=== PATIENT | male | born 1965 | race Caucasian/White ===

== ENCOUNTER → 2016-12-10 | Outpatient (CLI) | payer OTHER ==
[~2016-12-10] MED LIST: ASPI81TA28 PO; CEPH500C2 PO; LSN/2025 PO; OXYC-57 PO
== END | disposition home or self-care (01) ==
LOC: C.CPL 11:15
PROVIDERS: ATTEND Otolaryngology
DX: Z01.810 Encounter for preprocedural cardiovascular examination (principal)

== ENCOUNTER → 2016-12-13 | Day surgery (SDC) | payer OTHER ==
[2016-12-12 08:25] VITALS: Ht 182.9 cm; Wt 109.1 kg
--- NOTE | 2016-12-12 12:46 | History and Physical: Surg Cnt ---
History & Physical Date Dec 12, 2016. Chief Complaint hearing loss left ear and nasal obstruction History of Present Illness The patient is a 51 year old male with complaints of septal deviation, congenital atresia of left ear Past Medical/Surgical History Medical Problems: (1) Hypertension (2) Kidney stone Additional History Hepatic Disease: No Endocrine Disorder: No Kidney Disease: No Hypertension: No Heart Disease: No Bleeding Tendencies: No Infectious Diseases: No Allergies Coded Allergies: No Known Allergies (Unverified , 12/12/16) Home Medications Scheduled Aspirin (Aspirin Ec), 81 MG PO DAILY Hctz/Lisinopril (Lisinopril/Hctz 20/25 Mg), 1 TAB PO QAM Physical Examination Skin: warm/dry, no rash Eyes: normal inspection, EOMI, sclerae normal ENT: + pertinent finding (septal dev., atresia left ear) Head: normocephalic, atraumatic Neck: supple, no adenopathy, trachea midline Respiratory/Chest: lungs clear, normal breath sounds, no respiratory distress Cardiovascular: regular rate, rhythm, no edema, no murmur Abdomen / GI: normal bowel sounds, non tender Back: normal inspection Extremities: normal inspection, normal range of motion Neurologic/Psych: no motor/sensory deficits, alert, normal reflexes, oriented x 3 Diagnosis septal deviation, atresia left ear Plan of Treatment septoplasty, cochlear implant left ear
[~2016-12-13] VITALS: Ht 182.9 cm; Wt 109.1 kg
[~2016-12-13] MED LIST changes: +ATROPINE SULFATE 0.1 MG/ML 5ML SYR IV PRN; +BACITRACIN OINT 15 GM TUBE ONE; +CEFAZOLIN 2000 MG/60 ML D5W IV SCH; +DEXAMETHASONE SOD INJ 4 MG/ML VIAL ONE; +EpHEDrine SULFATE INJ 50 MG/ML AMP IV PRN; +EpHEDrine SULFATE INJ 50 MG/ML AMP ONE; +EpINEphrine INJ 1MG/ML AMP 1 MG/ML AMP ONE; +FENTANYL CITRATE INJ 50 MCG/1 ML 2 ML VIAL IV PRN; +FENTANYL CITRATE INJ 50 MCG/1 ML 2 ML VIAL ONE; +GELATIN SPONGE 12-7MM ONE; +GLYCOPYRROLATE INJ 0.2 MG/ML VIAL ONE; +LACTATED RINGER'S 1000ML 1,000 ML IV SCH; +LIDO 2%/EPINEPHRINE 1:100000 20 ML VIAL INFIL ONE; +LIDOCAINE 4% MPF SOAK 5 ML = 1 DOSE TOP ONE; +LIDOCAINE HCL 2% 2 ML VIAL (20MG/ML) ONE; +MIDAZOLAM HCL 1 MG/ML 2ML VIAL ONE; +NEOSTIGMINE METHYLSULFATE 5 MG/5 ML SYR ONE; +ONDANSETRON INJ 2 MG/ML 2 ML VIAL IV PRN; +ONDANSETRON INJ 2 MG/ML 2 ML VIAL ONE; +OXYCODONE/ACETAMINOPHEN 5-325 TAB PO PRN; +PHENYLEPHRINE HCL INJ 10 MG/ML VIAL ONE; +PROMETHAZINE HCL INJ 6.25 MG in SODIUM CHLORIDE 0.9% 50ML 50 ML IV PRN; +PROPOFOL IV EMULSION 10 MG/ML 20 ML VIAL IV ONE; +SODIUM CHLORIDE 0.9% 1000ML 1,000 ML IV SCH; +SUCCINYLCHOLINE CHLORIDE 20 MG/ML 10 ML VIAL IV ONE
--- NOTE | 2016-12-13 07:47 | History & Physical Bridge Note ---
H&P Re-Evaluation Bridge Note: I have examined the patient, reviewed the History & Physical and in the interval since the performance of the History & Physical I have noted the following changes of clinical significance: No changes noted
--- NOTE | 2016-12-13 12:29 | [facility] Operative Report ---
Operative Report Operative Date Dec 13, 2016. Pre-Operative Diagnosis Atresia Left Ear, Septal Deviation Post-Operative Diagnosis Same Procedure(s) Performed Left Ear Cochlear Implant; Septoplasty Surgeon Dr.Y. Weathers [employer] Install[employer] Surgeon(s) None Estimated Blood Loss 75 cc Findings Septal deviation to the left and atresia of left ear Specimens None Drains none Anesthesia Gen. Complication(s) None Disposition Recovery Room / PACU Implants Left-sided bone-anchored hearing implant Indications 51-year-old man with congenital left sided atresia of the left ear and septal deviation to the left with obstruction Description of Procedure The patient was brought to the operating room and placed in the supine position. General endotracheal anesthesia seizure was induced. The left ear was prepped with Betadine paint and draped in the usual sterile manner. The implant site was marked this with 6 cm behind the left ear with a 3 cm radius around the implant site for the skin flap. The incision was injected with 2% Xylocaine with 1 100,000 strength epinephrine and the incision was made using a 15 blade carried down through the skin and subcutaneous layer to the temporalis layer elevating the skin flap with the muscle superiorly and posteriorly. The implant site was marked with the needle and then with the 15 blade a cruciate incision was made around the implant site periosteum was elevated using the periosteal elevator. Bleeders were controlled using the Bovie. The guide drill was used to open the implant site to 3 mm. The site was checked with the probe and then further extended to 4 mm. However an emissary vein was encountered with significant bleeding. Therefore the 3 mm widening drill was used to widen the implant site to 3 mm depth. The 3 mm bone anchored implant was then twisted in place at 40 [place] dines sealing the site and controlling the bleeding. The surrounding area was checked with a rotating disc for placement of the magnet. The magnet was placed and twisted tightly to 25 Morrow dines. The incision was closed with interrupted 4-0 Vicryl sutures subcutaneously and subcuticularly and Dermabond on the skin. Attention was turned to the nose. The nose was decongested using cottonoids with topical solution of 4 mL of 4% Xylocaine mixed with 1 mL of epinephrine. Injection of 2% Xylocaine with 1 100,000 strength epinephrine was also used. The left hemitransfixion incision was made using the 15 blade. The mucoperichondrium was elevated on the left side the cartilage from the vomer and maxillary crest inferiorly and perpendicular plate of the ethmoid posteriorly. Bilateral posterior tunnels were elevated. Superior and inferior tunnels were elevated. The bony cartilaginous spur projecting to the left was isolated using the 15 blade a caudal dissector and then removed using the Сергей Orosco rongeurs and the Lonnie forceps. The septum was resected in the midline by creating a columellar pocket and implanting the caudal end of the septum into this pocket. The septum was closed using a continuous mattress suture of 40 plain gut and a single piece of Gelfoam was packed on the left side of the septum the patient tolerated procedure well and was taken to recovery area. A [place] dressing and a drip pad was placed. I attest to the content of the Intraoperative Record and any orders documented therein. Any exceptions are noted below.
--- NOTE | 2016-12-13 12:32 | Discharge Instructions-SurgCtr ---
Discharge Instructions Date of Service Dec 13, 2016. Visit Reason for Visit: Atresia Left Ear, Septal Deviation Discharge Discharge Diagnosis / Problem: same Discharge Goals Goal(s): Improve function Medications Stopped Medications Name(s): ASA 81 mg Activity Recommendations Activity Limitations: resume your previous activity Anesthesia . Post Anesthesia Instructions: If you have had General Anesthesia or IV Sedation: * Do not drive today. * Resume driving when surgeon permits. * Do not make important decisions or sign legal documents today. * Call surgeon for: 1. Temperature elevations greater than 101 degrees F. 2. Uncontrollable pain. 3. Excessive bleeding. 4. Persistent nausea and vomiting. 5. Medication intolerance (nausea, vomiting or rash). * For nausea and vomiting use only clear liquids such as: tea, soda, bouillon until nausea subsides, then gradually increase diet as tolerated. * If you have any concerns or questions, call your surgeon's office. If physician is unavailable and it is an emergency, call 911 or go to the nearest emergency room. . Instructions / Follow-Up Instructions / Follow-Up ACTIVITY RECOMMENDATIONS: No limitations OVER THE COUNTER MEDICATIONS: Continue any other previous medications unless otherwise indicated by your surgeon. * You may use Tylenol for mild pain as per bottle instructions. SPECIAL CARE INSTRUCTIONS: * Keep operative ear dry. * Please call with any increasing pain, increasing drainage, active bleeding, redness and/or swelling, or any concerns. Dr. Weathers's office number is . FOLLOW UP VISIT: If not already scheduled, please call to schedule follow-up appointment with Dr. Weathers. ACTIVITY RECOMMENDATIONS: * Being up and around is good, but no strenuous activity, heavy lifting or physical exertion for one week. * Keep your head elevated 30 degrees when lying down or sleeping. * Do not blow your nose for 48 hours, sniff back instead. * Avoid hot showers. OVER THE COUNTER MEDICATIONS: * You may use Tylenol * Avoid aspirin or aspirin containing products, e.g. as they may increase bleeding. SPECIAL CARE INSTRUCTIONS: * Expect to have bloody drainage from your nose and/or down your throat for one to three days. Change drip pad as needed. * Begin irrigating your nose with saline solution today, at least six to ten times per day and sniff back to help remove old clots or crust. * You may experience nasal and facial congestion, pain and pressure, this is normal. * Please call with any significant and/or progressive pain, redness, swelling around the eyes, visual changes, fever of 101.5 degrees F, active bleeding or any problems or concerns. * If active bleeding occurs, spray the nose three times at one minute intervals with Afrin spray and call or cell phone: . If unable to reach the doctor, go to the nearest Emergency Department. Special Diet: * Avoid extremely hot fluids. FOLLOW UP VISIT: Follow-up Visit with Dr. Weathers If not already scheduled, please call to schedule. Diet Recommendations Home Diet: no limitations Procedures Procedures Performed: Left Ear Cochlear Implant; Septoplasty Pending Studies Studies pending at discharge: no Medical Emergencies . Who to Call and When: Medical Emergencies: If at any time you feel your situation is an emergency, please call 911 immediately. . Non-Emergent Contact Non-Emergency issues call your: Primary Care Provider . . "Provider Documentation" section prepared by Jyoti Weathers. . [place] Drug Monitoring Program Search Results: no issues identified
--- NOTE | 2016-12-13 12:39 | Anesthesia Progress Nt - [facility] ---
Anesthesia Post Op Note Date & Time Dec 13, 2016 at 12:38 Vital Signs Pain Intensity: 0 Vital Signs Past 12 Hours Date Time Temp Pulse Resp B/P (MAP) Pulse Ox O2 Delivery O2 Flow Rate FiO2 12/13/16 12:09 36.0 71 12 136/86 99 Humidified Oxygen 6 Mask 12/13/16 08:08 36.6 72 20 151/105 (120) 99 Room Air Notes Mental Status: alert / awake / arousable, participated in evaluation Pt Amnestic to Procedure: Yes Nausea / Vomiting: adequately controlled Pain: adequately controlled Airway Patency, RR, SpO2: stable & adequate BP & HR: stable & adequate Hydration State: stable & adequate Anesthetic Complications: no major complications apparent
[2016-12-13 12:45] VITALS: TEMP 36.2
[2016-12-13 13:29] VITALS: BP 147/93; PULSE 80; O2SAT 97
== END | disposition home or self-care (01) ==
LOC: X.SURG 08:02
PROVIDERS: ATTEND Otolaryngology
DX: Q16.1 Congenital absence, atresia and stricture of auditory canal (external) (principal); J34.2 Deviated nasal septum; Z79.82 Long term (current) use of aspirin